=== PATIENT | male | born 1985 | race Two or more races ===

== ENCOUNTER 2020-07-05 04:22 | Day surgery (SDC) | payer OTHER ==
[2020-07-02 14:29] VITALS: BMI 32.8
--- OUTSIDE RECORDS SUMMARY | 2020-07-05 04:34 | XMS ---
:1985 Author Organization [facility] Care Team Providers Name Role Phone Ringstad, Kiah Unavailable Unavailable Ringstad, Kiah Unavailable Unavailable Ringstad, Kiah Unavailable Unavailable Ringstad, Kiah Unavailable Unavailable Ringstad, Kiah Unavailable Unavailable Ringstad, Kiah Unavailable Unavailable Ringstad, Kiah Unavailable Unavailable Ringstad, Kiah Unavailable Unavailable Ringstad, Kiah Unavailable Unavailable Ringstad, Kiah Unavailable Unavailable Ringstad, Kiah Unavailable Unavailable Aszalos, Tamiko Lucy Unavailable Unavailable Aszalos, Lucy Unavailable Unavailable Aszalos, Lucy Unavailable Unavailable Aszalos, Lucy Unavailable Unavailable Aszalos, Lucy Unavailable Unavailable Aszalos, Lucy Unavailable Unavailable Aszalos, Lucy Unavailable Unavailable Aszalos, Lucy Unavailable Unavailable Aszalos, Lucy Unavailable Unavailable STEVE Unavailable Unavailable Bowie Unavailable Unavailable Bowie Unavailable Unavailable Bowie Unavailable Unavailable Bowie Unavailable Unavailable Bowie Unavailable Unavailable Bowie Unavailable Unavailable Bowie Unavailable Unavailable Bowie Unavailable Unavailable Bowie Unavailable Unavailable Bowie Unavailable Unavailable Rodrigo Unavailable [phone] MEJIA NATHANIEL Unavailable Unavailable OTONIEL WARNER Unavailable Unavailable Alice Unavailable [phone] Alice Unavailable [phone] Alice Unavailable [phone] Skinny Unavailable Unavailable Skinny Unavailable Unavailable Skinny Unavailable Unavailable Fraser Unavailable [phone] Fraser Unavailable [phone] [place] Unavailable [phone] [place] Unavailable [phone] Re-disclosure Warning The records that you are about to access may contain information from federally- assisted alcohol or drug abuse programs. If such information is present, then the following federally mandated warning applies: This information has been disclosed to you from records protected by federal confidentiality rules (42 CFR part 2). The federal rules prohibit you from making any further disclosure of this information unless further disclosure is expressly permitted by the written consent of the person to whom it pertains or as otherwise permitted by 42 CFR part 2. A general authorization for the release of medical or other information is NOT sufficient for this purpose. The Federal rules restrict any use of the information to criminally investigate or prosecute any alcohol or drug abuse patient.The records that you are about to access may contain highly sensitive health information, the redisclosure of which is protected by Article 27-F of the [facility] Public Health law. If you continue you may haveaccess to information: Regarding HIV / AIDS; Provided by facilities licensed or operated by the [facility] Office of Mental Health; or Provided by the [facility] Office for People With Developmental Disabilities. If such information is present, then the following [facility] mandated warning applies: This information has been disclosed to you from confidential records which are protected by state law. State law prohibits you from making any further disclosure of this information without the specific written consent of the person to whom it pertains, or as otherwise permitted by law. Any unauthorized further disclosure in violation of state law may result in a fine or skilled nursing sentence or both. A general authorization for the release of medical or other information is NOT sufficient authorization for further disclosure. Allergies and Adverse Reactions Type Description Substance Reaction Status Data Source(s ) Propensity to Propensity to Propensity to NEXTG EN ( adverse reactions adverse reactions adverse reactions [facility] (disorder) (disorder) (disorder) Center) Family History Family Member Family Member Family Member Date of Description Data Source(s) Name Gender Status Status Unknown Male Problem 06/28/2019 JUAN RAMONGEN ( (finding) 12:00:00 AM [facility] al EDT Center) Encounters Encounter Providers Location Date Indications Data Source(s ) Attender: [facility] 06/25/2020 NEXTGE N ([facility] 03:49:00 [facility] PM EDT - Center) 06/25/2020 03:49:00 PM EDT Attender: [facility] 06/09/2020 NEXTGE N ([facility] 09:56:00 [facility] al AM EDT - Center) 06/09/2020 09:56:00 AM EDT Outpatient 04/19/2020 [facility] 11:12:00 Medical Center AM EDT Outpatient 04/19/2020 [facility] 12:00:00 Medical Center AM EDT Outpatient 04/05/2020 [facility] 01:51:00 Medical Center PM EDT Outpatient 04/05/2020 [facility] 12:00:00 Medical Center AM EDT Outpatient 03/22/2020 [facility] 09:24:00 Medical Center AM EDT Outpatient 03/22/2020 [facility] 12:00:00 Medical Center AM EDT Outpatient Attender: Tamiko [place] 03/19/2020 [facility] jana AszalosAdmitter 03:04:00 Medical C enter : Tamiko PM EDT AsronnielosReferrer : Tamiko Trujillo Attender: [facility] 03/19/2020 NEXTGE N ([facility] 03:04:00 [facility] al PM EDT - Center) 03/19/2020 03:04:00 PM EDT Outpatient 03/19/2020 [facility] 11:34:00 Medical Center AM EDT Outpatient 03/19/2020 [facility] 12:00:00 Medical Center AM EDT Attender: [facility] 03/17/2020 NEXTGE N ([facility] 11:00:00 [facility] al AM EDT - Center) 03/17/2020 11:00:00 AM EDT Outpatient 03/08/2020 [facility] 03:33:00 Medical Center PM EDT Outpatient 03/08/2020 [facility] 12:00:00 Medical Center AM EDT Attender: [facility] 03/04/2020 NEXTGE N ([facility] 10:32:00 [facility] Me dical AM EDT - Center) 03/04/2020 10:32:00 AM EDT Attender: [facility] 01/28/2020 NEXTGEN ([facility] int [facility] 01:53:00 [facility] Me dical EDT - Center) 01/28/2020 01:53:00 PM EDT Outpatient Attender: 01/26/2020 [facility] TIMMY FREDERICK 12:33:[address] MIGUELNYAdmitter: PM EDT TIMMY OTONIEL WARNERReferrer: TIMMY RIVERANY PHONE E/M BY PHYS Attender: [facility] 01/26/2020 NEXT GEN ([facility] 11-20 MIN [place] 12:33:00 [facility] Medica l Alice EDT - Center) 01/26/2020 12:33:00 PM EDT Outpatient 01/26/2020 [facility] 10:04:00 Medical Center AM EDT Outpatient 01/26/2020 [facility] 12:00:00 Medical Center AM EDT Outpatient Attender: 01/17/2020 Z03.818 [place] KARAdmitter: 02:35:00 [facility] EDT Care [employer] on Z03.818 Outpatient 01/15/2020 [facility] 04:46:00 PM EDT Medical C enter Outpatient Attender: 01/15/2020 [facility] Kiah 08:39:00 AM EDT Medical C enter MelissatadAdmitter: Kiah Dioxneferrer: Kiah Umaña PHONE E/M BY PHYS [facility] ([facility] 11-20 MIN Jasper Rodrigo [place] 08:39:00 AM EDT - [facility] 01/15/2020 [place]) 08:39:00 AM EDT Outpatient 01/15/2020 [facility] 12:00:00 AM EDT Medical C enter Attender: [facility] 12/22/2019 JUAN RAMONG EN ([facility] 11:54:00 AM EDT - [facility] 12/22/2019 Center) 11:54:00 AM EDT Outpatient 12/17/2019 [facility] 10:30:00 AM EDT Medical C enter Outpatient Attender: Jocelin [place] 12/17/2019 [facility] VelezAdmitter: 09:51:00 AM EDT Medic al Center Jocelin BowieReferrer: Jocelin Bowie OutpatientOFFICE/OU Attender: [facility] 12/17/2019 [facility] ([facility] TPATIENT VISIT, [facility]3] 09:51:00 AM EDT [facility] 12/17/2019 [place]) 09:51:00 AM EDT Outpatient 12/17/2019 [facility] 09:49:00 AM EDT Medical C enter Outpatient 12/17/2019 [facility] 12:00:00 AM EDT Medical C enter Outpatient 12/01/2019 [facility] 03:52:00 PM EST Medical C enter Outpatient 12/01/2019 [facility] 12:00:00 AM EST Medical C enter Outpatient 11/08/2019 [facility] 10:31:00 AM EST Medical C enter Outpatient Attender: NATHANIEL H 11/08/2019 [facility] ephs MEJIA 08:41:00 AM EST Medical C enter MINALAdmitter: NATHANIEL BA MINALReferrer: NATHANIEL BA NATHANIEL OutpatientOFFICE/OU Attender: [facility] 11/08/2019 [facility] (Saint TPATIENT VISIT, [facility] 08:41:00 AM [facility] 11/08/2019 [place]) 08:41:00 AM EST Outpatient 11/08/2019 [facility] 12:00:00 AM EST Medical C enter Attender: [facility] 11/05/2019 NEXT EN ([facility] 10:19:00 AM [facility] 11/05/2019 [place]) 10:19:00 AM EST Attender: [facility] 07/30/2019 NEXTG EN ([facility] [place] 09:28:00 AM EDT Outpatient Attender: NATHANIEL H 07/22/2019 [facility] ephs MEJIA 06:03:00 PM EDT Medical C enter MINALAdmitter: NATHANIEL BA MINALReferrer: NATHANIEL MEJIA NATHANIEL OutpatientOFFICE/OU Attender: [facility] 07/22/2019 [facility] (Saint TPATIENT VISIT, [facility] 06:03:00 PM EDT [facility] 07/22/2019 [place]) 06:03:00 PM EDT Outpatient 07/22/2019 [facility] 11:58:00 AM EDT Medical C enter Outpatient 07/22/2019 [facility] 12:00:00 AM EDT Medical C enter Outpatient 07/12/2019 [facility] 03:31:00 PM EDT Medical C enter Outpatient Attender: NATHANIEL [place] 07/12/2019 [facility] jana BA 09:48:00 AM EDT Medical C enter MINALAdmitter: NATHANIEL CARVALHOALReferrer: NATHANIEL ARMSTRONG OutpatientOFFICE/OU Attender: [facility] 07/12/2019 NEXTGEN ([facility] TPATIENT VISIT, [facility] 09:48:00 AM EDT [facility] 07/12/2019 [place]) 09:48:00 AM EDT Outpatient 07/12/2019 [facility] 12:00:00 AM EDT Medical C enter Outpatient 07/05/2019 [facility] 10:31:00 AM EDT Medical C enter Outpatient 07/05/2019 [facility] 12:00:00 AM EDT Medical C enter Attender: [facility] 07/01/2019 NEXTG EN ([facility] 11:10:00 AM EDT [facility] 07/01/2019 Center) 11:10:00 AM EDT Outpatient 07/01/2019 [facility] 10:56:00 AM EDT Medical C enter Outpatient 07/01/2019 [facility] 12:00:00 AM EDT Medical C enter Outpatient 06/28/2019 [facility] 10:58:00 AM EDT Medical C enter Outpatient H 06/28/2019 [facility] 08:45:00 AM EDT Medical C enter OutpatientOFFICE/OU Attender: [facility]28[facility]2019 [facility] 08:45:00 AM EDT [facility] 06/28/2019 [place]) 08:45:00 AM EDT 06/28/2019 [facility] 08:43:00 AM EDT Medical C enter Outpatient 06/28/2019 [facility] 12:00:00 AM EDT Medical C enter 06/23/2019 [facility] 10:55:00 AM EDT Medical C enter Patient admitted. Medications Medication Brand Start Product Dose Route Administrative Pharmacy [facility] Indications Reaction Description Data Name Date Form Instructions Instructions Source(s) Naproxen naprox ORAL active take 1 NEX TGEN 500 MG Oral en 500 2019 {tabl tablet by ([facility] Tablet mg 12:00: et} oral route 2 Max ephs naproxen tablet 00 AM times every M edical 500 mg EDT day with Center) tablet food Naproxen naprox ORAL complet take 1 NE XTGEN 500 MG Oral en 500 2019 {tbl} ed tablet by ([facility] Tablet mg 12:00: oral route 2 Max ephs naproxen tablet 00 AM times every M edical 500 mg EDT day with Center) tablet food Medication administered onsite Flonase Allergy fluticasone 12/17/2019 NASAL active fluticasone NEXTGEN Relief 50 propionate 12:00:00 AM pr opionate (Saint mcg/actuation 0.05 EDT 0.05 Darrell s nasal MG/ACTUAT MG/ACTUAT Medi michael spray,suspension Metered Dose Metered Dose Center) Nasal [place] Nasal [place] [Flonase] Ketoconazole 20 ketoconazole 11/08/2019 0 TOPICAL active apply tube NEXTGEN MG/ML Topical 2 % topical 12:00:00 AM {t by topical ([facility] Cream cream EST ub route every Michael hs ketoconazole 2 % e} day to t he Medical topical cream affected Ce nter) area(s) Ketoconazole 20 ketoconazole 11/08/2019 TOPICAL complet ed apply by NEXTGEN MG/ML Topical 2 % topical 12:00:00 AM topical ([facility] Cream cream EST route every Michael hs ketoconazole 2 % day to t he Medical topical cream affected Ce nter) area(s) Medication administered onsite Naproxen 500 MG naproxen 11/08/2019 1.00 ORAL completed take 1 tablet NEXTGEN Oral Tablet 500 mg 12:00:00 AM {tbl} by oral route (Saint naproxen 500 mg tablet EST 2 times every [facility] tablet day with food [facility]) Naproxen 500 MG naproxen 07/22/2019 1.00 ORAL completed take 1 tablet NEXTGEN Oral Tablet 500 mg 12:00:00 AM {tbl} by oral route (Saint naproxen 500 mg tablet EDT 2 times every Arnadlo tablet day with food [facility]) Sulfamethoxazole Bactrim 06/28/2019 1.00 ORAL completed Sulfamethoxazo NEXTGEN 800 MG / DS 800 12:00:00 AM {tbl} le 800 MG / (Saint Trimethoprim 160 mg-160 mg EDT Tri methoprim [facility] MG Oral Tablet tablet 160 MG O ral Medical [Bactrim] Bactrim Tablet Center) DS 800 mg-160 mg [Bactrim ] tablet Insurance Providers Payer name Policy type Policy ID Covered Covered alliance party's Policy P martín / Coverage alliance party ID relationship to [employer] ormation type brunson MAE [id number] SP [id number] ESSENTIAL PLAN 3 4 MAE O [id number] 01 [id number] ESSENTIALS-CO MMERCIAL Problems, Conditions, and Diagnoses Code Display Name Description Problem Type Effective Data Sour ce(s) Dates [id number] Backache Backache Problem NEXTGEN ([facility]) Z71.89 Other specified OTHER SPECIFIED Diagnosis 03/19/2020 Kevin Mcintosh counseling COUNSELING 03:04:00 PM Medical Ashleye r EDT Z71.9 Counseling, COUNSELING, Diagnosis 03/19/2020 [facility] moise unspecified UNSPECIFIED 03:04:[address] EDT N28.1 Cyst of kidney, CYST OF KIDNEY, Diagnosis 03/19/2020 Kevin Mcintosh acquired ACQUIRED 03:04:00 PM Medical Cente r EDT M62.830 Muscle spasm of MUSCLE SPASM OF Diagnosis 03/19/2020 Kevin Mcintosh back BACK 03:04:00 PM Medical Cente r EDT Z02.9 Encounter for ENCOUNTER FOR Diagnosis 01/26/2020 [facility] administrative ADMINISTRATIVE 12:33:00 PM Medic vt Center examinations, EXAMINATIONS, EDT unspecified UNSPECIFIED Z03.818 Encounter for ENCNTR FOR OBS FOR Diagnosis 01/17/2020 [place] observation for SUSP EXPSR TO OTH 02:35:00 PM C [employer] suspected exposure BIOLG AGENTS RULED EDT Care to other OUT [facility] biological agents ruled out R05 Cough COUGH Diagnosis 01/15/2020 [facility] 08:39:00 AM Medical Cente r EDT J06.9 Acute upper ACUTE UPPER Diagnosis 12/17/2019 [facility] respiratory RESPIRATORY 09:51:[address] infection, INFECTION, EDT unspecified UNSPECIFIED Z11.3 Encounter for ENCNTR SCREEN FOR Diagnosis 11/08/2019 Kevin Mcintosh screening for INFECTIONS W SEXL 08:41:00 AM Med ical Center infections with a MODE OF TRANSMISS EST predominantly sexual mode of transmission B35.9 Dermatophytosis, DERMATOPHYTOSIS, Diagnosis 11/08/2019 Sa marybeth Mcintosh unspecified UNSPECIFIED 08:41:[address] EST Z68.33 Body mass index BODY MASS INDEX Diagnosis 07/22/2019 Kevin Mcintosh (BMI) 33.0-33.9, (BMI) 33.0-33.9, 06:03:00 PM edical [place] adult ADULT EDT R73.03 Prediabetes PREDIABETES Diagnosis 07/12/2019 [facility] jose maria 09:48:00 AM Medical Cente r EDT R10.9 Unspecified UNSPECIFIED Diagnosis 07/12/2019 [facility] Darrell moise abdominal pain ABDOMINAL PAIN 09:48:00 AM [facility] Center EDT Diagnosis NEXTGEN ([facility]) Diagnosis NEXTGEN ([facility]) Diagnosis NEXTGEN ([facility]) Surgeries/Procedures Procedure Description Date Indications Data Source(s) PHONE E/M BY PHYS 01/26/2020 NEXTGEN (Jose Maria Mcintosh 11-20 MIN 12:00:00 AM EDT - Medical Ce nter) 01/26/2020 12:00:00 AM EDT PHONE E/M BY PHYS 01/15/2020 NEXTGEN (Jose Maria Mcintosh 11-20 MIN 12:00:00 AM EDT - Medical Ce nter) 01/15/2020 12:00:00 AM EDT OFFICE/OUTPATIENT 12/17/2019 NEXTGEN (Jose Maria Mcintosh VISIT, EST 12:00:00 AM EDT - Medical Ce nter) 12/17/2019 12:00:00 AM EDT OFFICE/OUTPATIENT 11/08/2019 NEXTGEN (Jose Maria Mcintosh VISIT, EST 12:00:00 AM EST - Medical Ce nter) 11/08/2019 12:00:00 AM EST OFFICE/OUTPATIENT 07/22/2019 NEXTGEN (Jose Maria Mcintosh VISIT, EST 12:00:00 AM EDT - Medical Ce nter) 07/22/2019 12:00:00 AM EDT OFFICE/OUTPATIENT 07/12/2019 NEXTGEN (Jose Maria Mcintosh VISIT, EST 12:00:00 AM EDT - Medical Ce nter) 07/12/2019 12:00:00 AM EDT OFFICE/OUTPATIENT 06/28/2019 DANIEL (Jose Maria Mcintosh VISIT, NEW 12:00:00 AM EDT - Medical Ce nter) 06/28/2019 12:00:00 AM EDT Results ID Date Data Source [id number] 07/01/2020 06:45:00 PM EDT [facility] Name Value Range Interpretation Description Data Sup porting Code Source(s) Document(s ) SARS [facility] coronavirus 2 RNA This lab was ordered by [facility] and reported by [facility]. ID Date Data Source [id number] 06/08/2020 02:27:00 PM EDT [facility] Name Value Range Interpretation Code Description Data Yolanda rce(s) Supporting Document(s ) SARS-CoV-2 [facility] BY PCR This lab was ordered by ISMAEL ATKINSON MD P [facility] and reported by [employer]. ID Date Data Source [id number] 03/25/2020 10:52:00 AM EDT [facility] 0400 Name Value Range Interpretation Description Data Sup porting Code Source(s) Document(s ) Leukocytes 4.4-11.0 <content [facility] [#/volume] in styleCode="Bold [facility] Blood by ">White Blood Medical Automated count Cell Count Center </content>7.12 KCUMM<content styleCode="Ital ics"> (4.4-11.0 KCUMM)</content > Erythrocytes 4.4-5.9 <content [facility] [#/volume] in styleCode="Bold [facility] Blood by ">Red Blood Medical Automated count Cell Count Center </content>4.73 MCUMM<content styleCode="Ital ics"> (4.4-5.9 MCUMM)</content > Erythrocyte mean 80.0-100 <content [facility] corpuscular .0 styleCode="Bold [facility]do volume [Entitic ">Mean Medical volume] by Corpuscular Center Automated count Volume </content>88.2 FL<content styleCode="Ital ics"> (80.0-100.0 FL)</content> Hematocrit 41.0-53. <content [facility] [Volume 0 styleCode="Bold [facility]do Fraction] of ">Hematocrit Medical Blood by </content>41.7 Center Automated count %<content styleCode="Ital ics"> (41.0-53.0 %)</content> Erythrocyte mean 32.0-37. <content [facility] corpuscular 0 styleCode="Bold [facility] hemoglobin ">Mean Corpus. Medical concentration Hgb Center [Mass/volume] by Concentration Automated count (MCHC) </content>34.3 G/DL<content styleCode="Ital ics"> (32.0-37.0 G/DL)</content> Hemoglobin 13.5-17. <content Saint [Mass/volume] in 5 styleCode="Bold [facility]do Blood ">Hemoglobin Medical </content>14.3 Center G/DL<content styleCode="Ital ics"> (13.5-17.5 G/DL)</content> Erythrocyte mean 26.0-34. <content [facility] corpuscular 0 styleCode="Bold [facility] hemoglobin ">Mean Medical [Entitic mass] Corposcular Center by Automated Hemoglobin count </content>30.2 PG<content styleCode="Ital ics"> (26.0-34.0 PG)</content> Erythrocyte 11.5-14. <content [facility] distribution 5 styleCode="Bold Ar[facility]do width [Ratio] by ">Red Cell Medical Automated count Distribution Center Width </content>12.5 %<content styleCode="Ital ics"> (11.5-14.5 %)</content> Platelets 130-400 <content [facility] [#/volume] in styleCode="Bold [facility] Blood by ">Platelet Medical Automated count Count Center </content>222 KCUMM<content styleCode="Ital ics"> (130-400 KCUMM)</content > Platelet mean 8.0-11.0 <content [facility] volume [Entitic styleCode="Bold Arnaldo volume] in Blood ">Mean Platelet Medical by Automated Volume Center count </content>11.0 FL<content styleCode="Ital ics"> (8.0-11.0 FL)</content> Neutrophils 36-66 <content [facility] [#/volume] in styleCode="Bold [facility] Blood by ">Neutrophil Medical Automated count </content>45.3 Center %<content styleCode="Ital ics"> (36-66 %)</content> UNK 1.6-7.3 <content [facility] styleCode="Bold Ar[facility]do ">Neutrophil Medical Count Center </content>3.22 KCUMM<content styleCode="Ital ics"> (1.6-7.3 KCUMM)</content > Lymphocytes 24.0-44. <content [facility] [#/volume] in 0 styleCode="Bold [facility] Blood by ">Lymphocyte Medical Automated count </content>39.7 Center %<content styleCode="Ital ics"> (24.0-44.0 %)</content> UNK 1.0-4.8 <content [facility] styleCode="Bold Ar[facility]do ">Lymphocyte Medical Count Center </content>2.83 KCUMM<content styleCode="Ital ics"> (1.0-4.8 KCUMM)</content > UNK 0.2-0.9 <content [facility] styleCode="Bold Arnaldo ">Monocyte Medical Count Center </content>0.56 KCUMM<content styleCode="Ital ics"> (0.2-0.9 KCUMM)</content > Monocytes 3.0-10.0 <content [facility] [#/volume] in styleCode="Bold [facility] Blood by ">Monocyte Medical Automated count </content>7.9 Center %<content styleCode="Ital ics"> (3.0-10.0 %)</content> Eosinophils 0-5.0 Above high <content [facility] [#/volume] in normal styleCode="Bold [facility] Blood by ">Eosinophil Medical Automated count </content>6.0 % Center H<content styleCode="Ital ics"> (0-5.0 %)</content> UNK 0.0-0.6 <content Saint styleCode="Bold Arnaldo ">Eosinophil Medical Count Center </content>0.43 KCUMM<content styleCode="Ital ics"> (0.0-0.6 KCUMM)</content > UNK 0.0-0.3 <content Saint styleCode="Bold Arnaldo ">Basophil Medical Count Center </content>0.05 KCUMM<content styleCode="Ital ics"> (0.0-0.3 KCUMM)</content > Basophils 0.0-1.0 <content [facility] [#/volume] in styleCode="Bold Ar[facility]do Blood by ">Basophil Medical Automated count </content>0.7 Center %<content styleCode="Ital ics"> (0.0-1.0 %)</content> UNK 0 <content Saint styleCode="Bold Arnaldo ">Nucleated Red Medical Blood Cell Center </content>0.0 /100<content styleCode="Ital ics"> (0 /100)</content> UNK 0-0.1 <content Saint styleCode="Bold Ar[facility]do ">Immature Medical Granulocyte Center Count </content>0.03 KCUMM<content styleCode="Ital ics"> (0-0.1 KCUMM)</content > UNK < 1 <content Saint styleCode="Bold Ar[facility]do ">Immature Medical Granulocyte Center Ratio </content>0.4 %<content styleCode="Ital ics"> (< 1 %)</content> UNK 0.0 <content Saint styleCode="Bold Arnaldo ">Nucleated Red Medical Blood Cell Center Count </content>0.00 KCUMM<content styleCode="Ital ics"> (0.0 KCUMM)</content > ID Date Data Source GFR(Creatinine).[id number] 03/25/2020 10:52:00 AM EDT [facility] 0-0400 Name Value Range Interpretation Code Description Data Yolanda rce(s) Supporting Document(s ) UNK > 60 <content [facility] styleCode="Bold"> Medical Cent er EGFR </content>136 GFR<content styleCode="Italic s"> (> 60 GFR)</content> ID Date Data Source [id number] 03/25/2020 10:52:00 AM EDT [facility] Name Value Range Interpretation Description Data Sup porting Code Source(s) Document(s ) Sodium 137-145 <content [facility] [Moles/volume] styleCode="Shea Arnaldo in Serum or d">Sodium Medical Plasma </content>141 Center MEQ/L<content styleCode="Sandra lics"> (137-145 MEQ/L)</conten t> Potassium 3.5-5.3 <content [facility] [Moles/volume] styleCode="Shea Arnaldo in Serum or d">Potassium Medical Plasma </content>4.1 Center MEQ/L<content styleCode="Sandra lics"> (3.5-5.3 MEQ/L)</conten t> Chloride 98-107 <content [facility] [Moles/volume] styleCode="Shea Arnaldo in Serum or d">Chloride Medical Plasma </content>107 Center MEQ/L<content styleCode="Sandra lics"> (98-107 MEQ/L)</conten t> UNK 9-20 <content Saint styleCode="Shea Arnaldo d">BUN Medical </content>15 Center MG/DL<content styleCode="Sandra lics"> (9-20 MG/DL)</conten t> Carbon 22-30 <content Saint dioxide, total styleCode="Shea Arnaldo [Moles/volume] d">Carbon Medical in Serum or Dioxide Center Plasma </content>27 MEQ/L<content styleCode="Sandra lics"> (22-30 MEQ/L)</conten t> Glucose 74-106 Above high normal <content Saint [Mass/volume] styleCode="Shea Arnaldo in Serum or d">Glucose Medical Plasma </content>113 Center MG/DL H<content styleCode="Sandra lics"> (74-106 MG/DL)</conten t> Creatinine 0.5-1.3 <content [facility] [Mass/volume] styleCode="Shea Arnaldo in Serum or d">Creatinine Medical Plasma </content>0.7 Center MG/DL<content styleCode="Sandra lics"> (0.5-1.3 MG/DL)</conten t> Calcium 8.4-10.2 <content [facility] [Mass/volume] styleCode="Shea Arnaldo in Serum or d">Calcium Medical Plasma </content>9.8 Center MG/DL<content styleCode="Sandra lics"> (8.4-10.2 MG/DL)</conten t> UNK > 60 <content Saint styleCode="Shea Arnaldo d">EGFR Medical </content>136 Center GFR<content styleCode="Sandra lics"> (> 60 GFR)</content> ID Date Data Source [id number] 02/22/2020 12:00:00 AM EDT [facility] Name Value Range Interpretation Code Description Data Yolanda rce(s) Supporting Document(s ) 2018-nCoV [facility] RNA XXX RIGOBERTO+probe- Imp [facility] and reported by [employer] ID Date Data Source [id number] 01/17/2020 12:00:00 AM EDT [facility] Name Value Range Interpretation Code Description Data Yolanda rce(s) Supporting Document(s ) nCoV [facility] RNA XXX RIGOBERTO+probe- Imp This lab was ordered by [facility] and reported by [employer] ID Date Data Source [id number] 12/17/2019 11:08:00 AM EDT NEXTG EN ([facility] [id number] [place]) Name Value Range Interpretation Code Description Data Supporting Source(s) Document(s ) NEGATIVE NEGATIVE RAPID INFLUENZA NEXTGEN B (NASAL) ([facility]) NEGATIVE NEGATIVE RAPID INFLUENZA NEXTGEN A (NASAL) ([facility]) A negative result does not exclude influ darin viral infection and shouldbe confirmed by viral culture. The clinical performan ce of thisimmunofluorescence assay has not been established in patients 22 years of age and older and may not be consistent with the clinical performanceobtained with yo romana patients.

ID Date Data Source Urinalysis.[id number] 11/08/2019 09:45:00 AM EST [facility] 0 Name Value Range Interpretation Description Data Sup porting Code Source(s) Document(s ) UNK CLEAR <content Saint styleCode="Shea Arnaldo d">Urine Medical Clarity Center </content>ZOE R <content styleCode="Sandra lics"> (CLEAR )</content> Glucose NEGATIVE <content [facility] [Mass/volume] styleCode="Shea Mcintosh in Urine by d">Urine Medical Test strip Glucose Center </content>NEGA TIVE MG/DL<content styleCode="Sandra lics"> (NEGATIVE MG/DL)</conten t> Color of Urine YELLOW <content Saint styleCode="Shea Ramírezs d">Color, Medical Urine Center </content>YELL OW <content styleCode="Sandra lics"> (YELLOW )</content> Specific 1.015-1.02 <content Saint gravity of 5 styleCode="Shea Mcintosh Urine by Test d">Urine Medical strip Specific Center [place] </content>1.01 5 <content styleCode="Sandra lics"> (1.015-1.025 )</content> Hemoglobin NEGATIVE <content Saint [Presence] in styleCode="Shea Mcintosh Urine by Test d">Urine Blood Medical strip </content>NEGA Center TIVE <content styleCode="Sandra lics"> (NEGATIVE )</content> Ketones NEGATIVE <content [facility] [Mass/volume] styleCode="Shea Mcintosh in Urine by d">Urine Medical Test strip Ketone Center </content>NEGA TIVE MG/DL<content styleCode="Sandra lics"> (NEGATIVE MG/DL)</conten t> UNK NEGATIVE <content Saint styleCode="Shea Ramírezs d">Urine Medical Bilirubin Center </content>NEGA TIVE <content styleCode="Sandra lics"> (NEGATIVE )</content> Nitrite NEGATIVE <content Saint [Presence] in styleCode="Shea Mcintosh Urine by Test d">Urine Medical strip Nitrite Center </content>NEGA TIVE <content styleCode="Sandra lics"> (NEGATIVE )</content> Protein NEGATIVE <content [facility] [Mass/volume] styleCode="Shea Mcintosh in Urine by d">Urine Medical Test strip Protein Center </content>NEGA TIVE MG/DL<content styleCode="Sandra lics"> (NEGATIVE MG/DL)</conten t> Urobilinogen 0.2-1.0 <content [facility] [Units/volume] styleCode="Shea Arnaldo in Urine by d">Urine Medical Test strip Urobilinogen Center </content>0.2 MG/DL<content styleCode="Sandra lics"> (0.2-1.0 MG/DL)</conten t> pH of Urine by 4.5-8.0 Above high <content Saint Test strip normal styleCode="Shea Arnaldo d">Urine pH Medical </content>8.5 Center H<content styleCode="Sandra lics"> (4.5-8.0 )</content> Leukocyte NEGATIVE <content Saint esterase styleCode="Shea Arnaldo [Presence] in d">Urine Medical Urine by Test Leukocyte Center strip </content>NEGA TIVE <content styleCode="Sandra lics"> (NEGATIVE )</content> ID Date Data Source Microbiology.[id number] 11/08/2019 09:45:00 AM EST [facility] 500 Name Value Range Interpretation Code Description Data Yolanda rce(s) Supporting Document(s ) UNK <item><content [facility] styleCode="Bold"> Medical Cent er Culture Report </content>
<t able><tbody><tr>< td>Specimen Number:</td><td>[id number]</td></tr ><tr><td>Sample Collection Date/Time: </td><td>11/08/2019 9:45 AM</td></tr><tr>< td>Specimen Source:</td><td>U RINE BLADDER</td></tr> <tr><td>Urine Culture:</td><td> Collection Plate Date: 11/08/2019 16:23 </td></tr><tr><td >Culture Status:</td><td>F inal </td></tr><tr><td >Culture Report:</td><td>N O GROWTH </td></tr></tbody ></table></item> UNK <item><content [facility] styleCode="Bold"> Medical Cent er Culture Status </content>
<t able><tbody><tr>< td>Specimen Number:</td><td>[id number]</td></tr ><tr><td>Sample Collection Date/Time: </td><td>11/08/2019 9:45 AM</td></tr><tr>< td>Specimen Source:</td><td>U RINE BLADDER</td></tr> <tr><td>Culture Report:</td><td>N O GROWTH </td></tr><tr><td >Urine Culture:</td><td> Collection Plate Date: 11/08/2019 16:23 </td></tr><tr><td >Culture Status:</td><td>F inal </td></tr></tbody ></table></item> ID Date Data Source CHMROUTINECCDA.[id number] 11/08/2019 09:45:00 AM EST [facility] -0500 Name Value Range Interpretation Description Data Sup porting Code Source(s) Document(s ) Prostate < 4.0 <content [facility] specific Ag styleCode="Bold Medical [Mass/volume ">Prostate Center ] in Serum Specific or Plasma Antigen </content>0.690 NG/ML<content styleCode="Ital ics"> (< 4.0 NG/ML)</content > ID Date Data Source [id number] 11/08/2019 09:45:00 AM EST NEXTG EN ([facility] [id number] [place]) Name Value Range Interpretation Code Description Data Supporting Source(s) Document(s ) [facility]INE [facility] BL[facility] ([facility]) [id number] SPECIMEN NO [facility]) 11/08/2019 PLATE DT NEXTGEN 16:23 ([facility]) 11/08/2019 COLLECTION DT NEXTGEN 09:45 ([facility]) NO GROWTH CULTURE REPORT NEXTGEN ([facility]) ID Date Data Source [id number] 11/08/2019 09:45:00 AM EST NEXTG EN ([facility] [id number] [place]) Name Value Range Interpretation Description Data Sup porting Code Source(s) Document(s ) [id number] SPECIMEN NO NEXTGEN ([facility]) URINE BLADDER CULTURE SOURCE [facility] ([facility]) Preliminary [facility]) 11/08/2019 PLATE DT NEXTGEN 16:23 ([facility]) 11/08/2019 COLLECTION DT NEXTGEN 09:45 ([facility]) Culture in [facility] progress ([facility]) ID Date Data Source [id number] 11/08/2019 09:45:00 AM EST NEXTG EN ([facility] [id number] [place]) Name Value Range Interpretation Code Description Data Yolanda rce(s) Supporting Document(s ) 0.690 NG/ML < 4.0 PSA [facility]) Method: Immunometric luminescent reactio n on the [employer] Vitros 5600.PSA in a given patient sample deter mined with tests from differentmanufacturers can vary due to differences in test meth ods and reagentspecificity and cannot be used interchangeably.PSA levels should not be interpreted as absolute evidence of the presenceor absence of malignant disease. Reference Range: < 4.0 ng/mL

ID Date Data Source [id number] 11/08/2019 09:45:00 AM EST NEXTG EN ([facility] [id number] [place]) Name Value Range Interpretation Description Data Sup porting Code Source(s) Document(s ) YELLOW YELLOW U COLOR [facility] ([facility]) CLEAR CLEAR U CLARITY [facility] ([facility]) NEGATIVE NEGATIVE U KETONE [facility] ([facility]) NEGATIVE NEGATIVE U GLUCOSE [facility] ([facility]) NEGATIVE NEGATIVE U BILIRUBIN NEXTGEN ([facility]) NEGATIVE NEGATIVE U BLOOD NEXTGEN ([facility]) 1.015 1.015-1.025 U SP.GRAVITY NEXTGEN ([facility]) 8.5 4.5-8.0 Above high normal U PH NEXTGEN ([facility]) NEGATIVE NEGATIVE U PROTEIN NEXTGEN ([facility]) NEGATIVE NEGATIVE U NITRITE NEXTGEN ([facility]) 0.2 MG/DL 0.2-1.0 U UROBILINOGEN NEXTGEN ([facility]) NEGATIVE NEGATIVE U. LEUKOCYTE NEXTGEN ([facility]) ID Date Data Source [id number] 11/08/2019 09:45:00 AM EST NEXTG EN ([facility] [id number] [place]) Name Value Range Interpretation Description Data Sup porting Code Source(s) Document(s ) Not Detected Not CHLAMYDIA NEXTGEN Detected URINE ([facility]) This test was performed using the APTIMA COMBO2(R) Assay(GEN-PROBE(R)).For additional information, please refer [email or web address](This link is being provided for informational /educationalpurposes only)

ID Date Data Source [id number] 11/08/2019 09:45:00 AM EST NEXTG EN ([facility] [id number] [place]) Name Value Range Interpretation Description Data Sup porting Code Source(s) Document(s ) Not Detected Not N.GONORRHOEAE NEXTGEN Detected RNA, TMA ([facility]) This test was performed using the APTIMA COMBO2(R) Assay(GEN-PROBE(R)).For additional information, please refer [email or web address](This link is being provided for informational /educationalpurposes only)

ID Date Data Source [id number] 11/08/2019 09:02:10 AM EST NEXTG EN ([facility] [id number] [place]) Name Value Range Interpretation Description Data Sup porting Code Source(s) Document(s ) Neg Bilirubin NEXTGEN ([facility]) Neg Blood NEXTGEN ([facility]) Clear Clarity NEXTGEN ([facility]) Neg Ketones NEXTGEN ([facility]) Urinalysis Yellow Color NEXTGEN dipstick panel ([facility] Automated test Medical strip [place]) 1.010 [place] NEXTGEN ([facility]) Neg Nitrite NEXTGEN ([facility]) Neg Leukocytes NEXTGEN ([facility]) Neg Protein NEXTGEN ([facility]) 8.5 pH NEXTGEN ([facility]) Neg [facility]ucose [facility] 0.2 Urobilinogen [facility] ([facility]) ID Date Data Source Stools.[id number] 07/14/2019 10:32:[address] [facility] Name Value Range Interpretation Description Data Sup porting Code Source(s) Document(s ) UNK Not Detected <content [facility] styleCode="Bold Medical ">H. Pylori Ag, Center Ql, Stool </content>Not Detected <content styleCode="Ital ics"> (Not Detected )</content> ID Date Data Source Urinalysis.[id number] 06/28/2019 10:02:00 AM EDT [facility] 0 Name Value Range Interpretation Description Data Sup porting Code Source(s) Document(s ) Glucose NEGATIVE <content Saint [Mass/volume] styleCode="Shea Mcintosh in Urine by d">Urine Medical Test strip Glucose Center </content>NEGA TIVE MG/DL<content styleCode="Sandra lics"> (NEGATIVE MG/DL)</conten t> UNK NEGATIVE <content Saint styleCode="Shea Arnaldo d">Urine Medical Bilirubin Center </content>NEGA TIVE <content styleCode="Sandra lics"> (NEGATIVE )</content> UNK CLEAR <content Saint styleCode="Shea Arnaldo d">Urine Medical Clarity Center </content>ZOE R <content styleCode="Sandra lics"> (CLEAR )</content> Color of Urine YELLOW <content Saint styleCode="Shea Arnaldo d">Color, Medical Urine Center </content>YELL OW <content styleCode="Sandra lics"> (YELLOW )</content> Specific 1.015-1.02 Below low normal <content Saint gravity of 5 styleCode="Shea Arnaldo Urine by Test d">Urine Medical strip Specific Center [place] </content>1.01 0 L<content styleCode="Sandra lics"> (1.015-1.025 )</content> Ketones NEGATIVE <content [facility] [Mass/volume] styleCode="Shea Arnaldo in Urine by d">Urine Medical Test strip Ketone Center </content>NEGA TIVE MG/DL<content styleCode="Sandra lics"> (NEGATIVE MG/DL)</conten t> pH of Urine by 4.5-8.0 <content Saint Test strip styleCode="Shea Arnaldo d">Urine pH Medical </content>5.5 Center <content styleCode="Sandra lics"> (4.5-8.0 )</content> Hemoglobin NEGATIVE <content Saint [Presence] in styleCode="Shea Ramírezs Urine by Test d">Urine Blood Medical strip </content>SMAL Center L <content styleCode="Sandra lics"> (NEGATIVE )</content> Leukocyte NEGATIVE <content [facility] esterase styleCode="Shea Ramírezs [Presence] in d">Urine Medical Urine by Test Leukocyte Center strip </content>NEGA TIVE <content styleCode="Sandra lics"> (NEGATIVE )</content> Nitrite NEGATIVE <content Saint [Presence] in styleCode="Shea Arnaldo Urine by Test d">Urine Medical strip Nitrite Center </content>NEGA TIVE <content styleCode="Sandra lics"> (NEGATIVE )</content> Protein NEGATIVE <content Saint [Mass/volume] styleCode="Shea Arnaldo in Urine by d">Urine Medical Test strip Protein Center </content>NEGA TIVE MG/DL<content styleCode="Sandra lics"> (NEGATIVE MG/DL)</conten t> Urobilinogen 0.2-1.0 <content Saint [Units/volume] styleCode="Shea Arnaldo in Urine by d">Urine Medical Test strip Urobilinogen Center </content>0.2 MG/DL<content styleCode="Sandra lics"> (0.2-1.0 MG/DL)</conten t> UNK 0-3 <content Saint styleCode="Shea Ramírezs d">Urine Red Medical Blood Cell Center </content>0-3 HPF<content styleCode="Sandra lics"> (0-3 HPF)</content> UNK <content Saint styleCode="Shea Ramírezs d">Epithelial Medical Cell Center </content>2-5 LPF (Reference Range: not available)<br/ > ID Date Data Source Microbiology.[id number] 06/28/2019 10:02:00 AM EDT [facility] 400 Name Value Range Interpretation Code Description Data Yolanda rce(s) Supporting Document(s ) UNK <item><content [facility] styleCode="Bold"> Medical [facility] er Culture Status </content>
<t able><tbody><tr>< td>Specimen Number:</td><td>[id number]</td></tr ><tr><td>Sample Collection Date/Time: </td><td> 9 10:02 AM</td></tr><tr>< td>Specimen Source:</td><td>U RINE BLADDER</td></tr> <tr><td>Culture Status:</td><td>F inal </td></tr><tr><td >Culture Report:</td><td>N O GROWTH </td></tr><tr><td >Urine Culture:</td><td> Collection Plate Date: 06/28/2019 16:48 </td></tr></tbody ></table></item> UNK <item><content [facility] styleCode="Bold"> Medical Cent er Culture Report </content>
<t able><tbody><tr>< td>Specimen Number:</td><td>[id number]</td></tr ><tr><td>Sample Collection Date/Time: </td><td> 10:02 AM</td></tr><tr>< td>Specimen Source:</td><td>U RINE BLADDER</td></tr> <tr><td>Culture Report:</td><td>N O GROWTH </td></tr><tr><td >Urine Culture:</td><td> Collection Plate Date: 06/28/2019 16:48 </td></tr><tr><td >Culture Status:</td><td>F inal </td></tr></tbody ></table></item> ID Date Data Source Liver 06/28/2019 10:02:[address] [facility] Profile.[id number] Name Value Range Interpretation Description Data Sup porting Code Source(s) Document(s ) Aspartate 17-59 <content Saint aminotransferase styleCode="Bold"> Michael hs [Enzymatic Aspartate Medical activity/volume] Aminotransferase Center in Serum or Plasma (AST) </content>33 IU/L<content styleCode="Italic s"> (17-59 IU/L)</content> Bilirubin.total 0.2-1.3 <content Saint [Mass/volume] in styleCode="Bold"> Michael hs Serum or Plasma Bilirubin Total Medical </content>0.3 Center MG/DL<content styleCode="Italic s"> (0.2-1.3 MG/DL)</content> Alanine 7-50 <content [facility] aminotransferase styleCode="Bold"> Michael hs [Enzymatic Alanine Medical activity/volume] Aminotransferase Center in Serum or Plasma (ALT) </content>30 IU/L<content styleCode="Italic s"> (7-50 IU/L)</content> Albumin 3.5-5.0 <content [facility] [Mass/volume] in styleCode="Bold"> Michael hs Serum or Plasma Albumin Medical </content>4.3 Center G/DL<content styleCode="Italic s"> (3.5-5.0 G/DL)</content> Alkaline 38-126 <content Saint phosphatase styleCode="Bold"> Arnaldo [Enzymatic Alkaline Medical activity/volume] Phosphatase (ALP) Cente r in Serum or Plasma </content>91 IU/L<content styleCode="Italic s"> (38-126 IU/L)</content> ID Date Data Source LIPID.[id number] 06/28/2019 10:02:00 AM EDT [facility] Name Value Range Interpretation Description Data Sup porting Code Source(s) Document(s ) UNK > 60 Below low normal <content Saint styleCode="Shea Arnaldo d">HDL- Medical Cholesterol Center </content>39 MG/DL L<content styleCode="Sandra lics"> (> 60 MG/DL)</conten t> UNK < 100 Above high normal <content Saint styleCode="Shea Arnaldo d">LDL-Cholest [facility] misael Center </content>140 MG/DL H<content styleCode="Sandra lics"> (< 100 MG/DL)</conten t> Triglyceride < 150 Above high normal <content Saint [Mass/volume] in styleCode="Shea Arnaldo Serum or Plasma d">Triglycerid Medical Center </content>153 MG/DL H<content styleCode="Sandra lics"> (< 150 MG/DL)</conten t> Cholesterol -<200 Above high normal <content Saint [Mass/volume] in styleCode="Shea Arnaldo Serum or Plasma d">Cholesterol Medical </content>210 Center MG/DL H<content styleCode="Sandra lics"> (-<200 MG/DL)</conten t> ID Date Data Source HematologyRou.[id number] 06/28/2019 10:02:00 AM EDT [facility] 0400 Name Value Range Interpretation Description Data Sup porting Code Source(s) Document(s ) Leukocytes 4.4-11.0 <content Saint [#/volume] in styleCode="Bold Arnaldo Blood by ">White Blood Medical Automated count Cell Count Center </content>7.74 KCUMM<content styleCode="Ital ics"> (4.4-11.0 KCUMM)</content > Hemoglobin 13.5-17. <content Saint [Mass/volume] in 5 styleCode="Bold Arnaldo Blood ">Hemoglobin Medical </content>14.6 Center G/DL<content styleCode="Ital ics"> (13.5-17.5 G/DL)</content> Erythrocytes 4.4-5.9 <content Saint [#/volume] in styleCode="Bold Arnaldo Blood by ">Red Blood Medical Automated count Cell Count Center </content>4.95 MCUMM<content styleCode="Ital ics"> (4.4-5.9 MCUMM)</content > Hematocrit 41.0-53. <content Saint [Volume 0 styleCode="Bold Arnaldo Fraction] of ">Hematocrit Medical Blood by </content>43.0 Center Automated count %<content styleCode="Ital ics"> (41.0-53.0 %)</content> Erythrocyte mean 32.0-37. <content [facility] corpuscular 0 styleCode="Bold Arnaldo hemoglobin ">Mean Corpus. Medical concentration Hgb Center [Mass/volume] by Concentration Automated count (MCHC) </content>34.0 G/DL<content styleCode="Ital ics"> (32.0-37.0 G/DL)</content> Erythrocyte 11.5-14. <content Saint distribution 5 styleCode="Bold Arnaldo width [Ratio] by ">Red Cell Medical Automated count Distribution Center Width </content>12.6 %<content styleCode="Ital ics"> (11.5-14.5 %)</content> Erythrocyte mean 80.0-100 <content [facility] corpuscular .0 styleCode="Bold Arnaldo volume [Entitic ">Mean Medical volume] by Corpuscular Center Automated count Volume </content>86.9 FL<content styleCode="Ital ics"> (80.0-100.0 FL)</content> Erythrocyte mean 26.0-34. <content Saint corpuscular 0 styleCode="Bold Arnaldo hemoglobin ">Mean Medical [Entitic mass] Corposcular Center by Automated Hemoglobin count </content>29.5 PG<content styleCode="Ital ics"> (26.0-34.0 PG)</content> UNK 0 <content Saint styleCode="Bold Arnaldo ">Nucleated Red Medical Blood Cell Center </content>0.0 /100<content styleCode="Ital ics"> (0 /100)</content> Platelets 130-400 <content Saint [#/volume] in styleCode="Bold Arnaldo Blood by ">Platelet Medical Automated count Count Center </content>267 KCUMM<content styleCode="Ital ics"> (130-400 KCUMM)</content > UNK 0.0 <content Saint styleCode="Bold Arnlado ">Nucleated Red Medical Blood Cell Center Count </content>0.00 KCUMM<content styleCode="Ital ics"> (0.0 KCUMM)</content > Platelet mean 8.0-11.0 Above high <content Saint volume [Entitic normal styleCode="Bold Arnaldo volume] in Blood ">Mean Platelet Medical by Automated Volume Center count </content>11.5 FL H<content styleCode="Ital ics"> (8.0-11.0 FL)</content> ID Date Data Source GFR(Creatinine).[id number] 06/28/2019 10:02:00 AM EDT [facility] 0-0400 Name Value Range Interpretation Code Description Data Yolanda rce(s) Supporting Document(s ) UNK > 60 <content [facility] styleCode="Bold"> Medical Cent er EGFR </content>117 GFR<content styleCode="Italic s"> (> 60 GFR)</content> ID Date Data Source CHMROUTINECCDA.[id number] 06/28/2019 10:02:00 AM EDT [facility] -0400 Name Value Range Interpretation Description Data Sup porting Code Source(s) Document(s ) UNK 4.2-5.8 Above high normal <content [place] s styleCode="Bold Medical ">Hemoglobin Center A1C </content>6.0 % H<content styleCode="Ital ics"> (4.2-5.8 %)</content> UNK 2.3-3.5 <content [facility] styleCode="Bold Medical ">Globulin Center </content>3.2 G/DL<content styleCode="Ital ics"> (2.3-3.5 G/DL)</content> UNK >= 1.0 <content [facility] styleCode="Bold Medical ">AG Ratio Center </content>1.3 <content styleCode="Ital ics"> (>= 1.0 )</content> Protein 6.3-8.2 <content [facility] [Mass/volum styleCode="Bold Medical e] in Serum ">Total Protein Center or Plasma </content>7.5 G/DL<content styleCode="Ital ics"> (6.3-8.2 G/DL)</content> Lipase 23-300 <content [facility] [Enzymatic styleCode="Bold Medical activity/vo ">Lipase Center lume] in </content>56 Serum or IU/L<content Plasma styleCode="Ital ics"> (23-300 IU/L)</content> ID Date Data Source [facility].[id number] 06/28/2019 10:02:00 AM EDT [facility] Name Value Range Interpretation Description Data Sup porting Code Source(s) Document(s ) Sodium 137-145 <content Saint [Moles/volume] in styleCode="Bold"> [facility] Serum or Plasma Sodium Medical </content>142 Center MEQ/L<content styleCode="Italic s"> (137-145 MEQ/L)</content> Chloride 98-107 <content Saint [Moles/volume] in styleCode="Bold"> [facility] Serum or Plasma Chloride Medical </content>104 Center MEQ/L<content styleCode="Italic s"> (98-107 MEQ/L)</content> Potassium 3.5-5.3 <content Saint [Moles/volume] in styleCode="Bold"> [facility] Serum or Plasma Potassium Medical </content>5.2 Center MEQ/L<content styleCode="Italic s"> (3.5-5.3 MEQ/L)</content> Carbon dioxide, 22-30 <content Saint total styleCode="Bold"> Arnaldo [Moles/volume] in Carbon Dioxide Medical Serum or Plasma </content>27 Center MEQ/L<content styleCode="Italic s"> (22-30 MEQ/L)</content> UNK 9-20 <content Saint styleCode="Bold"> Arnaldo BUN </content>17 Medical MG/DL<content Center styleCode="Italic s"> (9-20 MG/DL)</content> Aspartate 17-59 <content Saint aminotransferase styleCode="Bold"> Michael hs [Enzymatic Aspartate Medical activity/volume] Aminotransferase Center in Serum or Plasma (AST) </content>33 IU/L<content styleCode="Italic s"> (17-59 IU/L)</content> Calcium 8.4-10. Above high <content Saint [Mass/volume] in 2 normal styleCode="Bold"> Michael hs Serum or Plasma Calcium Medical </content>10.3 Center MG/DL H<content styleCode="Italic s"> (8.4-10.2 MG/DL)</content> UNK > 60 <content Saint styleCode="Bold"> Arnaldo EGFR Medical </content>117 Center GFR<content styleCode="Italic s"> (> 60 GFR)</content> Creatinine 0.5-1.3 <content Saint [Mass/volume] in styleCode="Bold"> Michael hs Serum or Plasma Creatinine Medical </content>0.8 Center MG/DL<content styleCode="Italic s"> (0.5-1.3 MG/DL)</content> Glucose 74-106 <content Saint [Mass/volume] in styleCode="Bold"> Michael hs Serum or Plasma Glucose Medical </content>99 Center MG/DL<content styleCode="Italic s"> (74-106 MG/DL)</content> Alkaline 38-126 <content Saint phosphatase styleCode="Bold"> Arnaldo [Enzymatic Alkaline Medical activity/volume] Phosphatase (ALP) Cente r in Serum or Plasma </content>91 IU/L<content styleCode="Italic s"> (38-126 IU/L)</content> Bilirubin.total 0.2-1.3 <content Saint [Mass/volume] in styleCode="Bold"> Michael hs Serum or Plasma Bilirubin Total Medical </content>0.3 Center MG/DL<content styleCode="Italic s"> (0.2-1.3 MG/DL)</content> Albumin 3.5-5.0 <content Saint [Mass/volume] in styleCode="Bold"> Michael hs Serum or Plasma Albumin Medical </content>4.3 Center G/DL<content styleCode="Italic s"> (3.5-5.0 G/DL)</content> Alanine 7-50 <content Saint aminotransferase styleCode="Bold"> Michael hs [Enzymatic Alanine Medical activity/volume] Aminotransferase Center in Serum or Plasma (ALT) </content>30 IU/L<content styleCode="Italic s"> (7-50 IU/L)</content> ID Date Data Source [id number] 06/28/2019 10:02:00 AM EDT NEXTG EN ([facility] [id number] [place]) Name Value Range Interpretation Code Description Data Yolanda rce(s) Supporting Document(s ) 6.0 % 4.2-5.8 Above high normal HB A[facility]C [facility]) For the purpose of screening for the pre sence of diabetes:< 5.8 % Consistent with the absence of diabetes5 .8 - 6.4 % Consistent with increased risk for diabetes(prediabetes)> or = 6.5 % Consistent with diabetesCurrently, no consensus exists for use of hemoglobin A 1cfor diagnosis of diabetes in children.According to [place] Diabetes Association (ADA) guidelines.Hemoglobin A1c <7.0% represents optimal control in non- diabetic patients. Different metrics may apply tospecific patient populations . Standards of medical Care inDiabetes (ADA).

ID Date Data Source [id number] 06/28/2019 10:02:00 AM EDT NEXTG EN ([facility] [id number] [place]) Name Value Range Interpretation Code Description Data Yolanda rce(s) Supporting Document(s ) 153 MG/DL < 150 Above high normal TRIGLYCERIDES NEXTGEN ([facility]) 39 MG/DL > 60 Below low normal HDL- CHOL NEXTGEN (Kevin t [facility]) 140 MG/DL < 100 Above high normal LDL- CALC NEXTGEN (Jose nt [facility]) 210 MG/DL <200 Above high normal [facility]LE[facility]OL [facility] ID Date Data Source [id number] 06/28/2019 10:02:00 AM EDT NEXTG EN ([facility] [id number] [place]) Name Value Range Interpretation Code Description Data Supporting Source(s) Document(s ) 142 MEQ/L 137-145 SODIUM [facility] ([facility]) 5.2 MEQ/L 3.5-5.3 POTASSIUM [facility] ([facility]) 27 MEQ/L 22-30 CARBON DIOXIDE [facility] ([facility]) 7.5 G/DL 6.3-8.2 TOTAL PROTEIN [facility] ([facility]) 104 MEQ/L 98-107 CHLORIDE [facility]) 33 IU/L 17-59 AST (GOT) [facility] ([facility]) 4.3 G/DL 3.5-5.0 ALBUMIN [facility] ([facility]) 1.3 >= 1.0 AG RATIO [facility] ([facility]) 3.2 G/DL 2.3-3.5 GLOBULIN [facility] ([facility]) 117 GFR > 60 eGFR [facility] ([facility]) Estimated GFR is calculated using the [place] dification of Diet in RenalDisease (MDRD) Study equation, and normalized to 1.73m2 body surfce area.The MDRD study equation should only be used in individuals age 18 orolder. It has not been validated f or the following: women,patients with serious comorbid conditions, or on certain medications, orpersons with extremes of body size, muscle mass, or nutritional status. 91 IU/L 38-126 ALP [facility] ([facility]) 30 IU/L 7-50 ALT NEXTGEN ([facility]) 10.3 MG/DL 8.4-10.2 Above high normal [facility]UM [facility] 17 MG/DL 9-20 BUN [facility]) 0.8 MG/DL 0.5-1.3 CRE[facility]ININE [facility] ([facility]) 0.3 MG/DL 0.2-1.3 BILI, TOTAL [facility]EXT[facility] ([facility]) 99 MG/DL 74-106 GLUCOSE [facility] ([facility]) ID Date Data Source [id number] 06/28/2019 10:02:00 AM EDT NEXTG EN ([facility] [id number] [place]) Name Value Range Interpretation Code Description Data Yolanda rce(s) Supporting Document(s ) 56 IU/L 23-300 LIPASE [facility] ([facility]) ID Date Data Source [id number] 06/28/2019 10:02:00 AM EDT NEXTG EN ([facility] [id number] [place]) Name Value Range Interpretation Code Description Data Yolanda rce(s) Supporting Document(s ) 39 MG/DL > 60 Below low normal HDL- CHOL [facility]) 153 MG/DL < 150 Above high normal TRIGLYCERIDES [facility] ([facility]) ID Date Data Source [id number] 06/28/2019 10:02:00 AM EDT NEXTG EN ([facility] [id number] [place]) Name Value Range Interpretation Description Data Sup porting Code Source(s) Document(s ) 27 MEQ/L 22-30 CARBON DIOXIDE [facility] ([facility]) 104 MEQ/L 98-107 CHLORIDE [facility]) 142 MEQ/L 137-145 SODIUM [facility]) 33 IU/L 17-59 AST (GOT) [facility] ([facility]) 4.3 G/DL 3.5-5.0 ALBUMIN [facility] ([facility]) 7.5 G/DL 6.3-8.2 TOTAL PROTEIN NEXT[facility] ([facility]) 91 IU/L 38-126 ALP [facility] ([facility]) 30 IU/L 7-50 ALT [facility] ([facility]) 0.8 MG/DL 0.5-1.3 CREATININE [facility] ([facility]) 17 MG/DL 9-20 BUN [facility] ([facility]) 10.3 MG/DL 8.4-10.2 Above high normal CALCIUM [facility] ([facility]) 0.3 MG/DL 0.2-1.3 BILI, TOTAL [facility] ([facility]) 99 MG/DL 74-106 GLUCOSE [facility] ([facility]) ID Date Data Source [id number] 06/28/2019 10:02:00 AM EDT NEXTG EN ([facility] [id number] [place]) Name Value Range Interpretation Code Description Data Yolanda rce(s) Supporting Document(s ) 7.74 KCUMM 4.4-11.0 WBC [facility] ([facility]) 4.95 MCUMM 4.4-5.9 RBC [facility] ([facility]) 43.0 % 41.0-53.0 HCT [facility] ([facility]) 86.9 FL 80.0-100.0 MCV [facility]) 14.6 G/DL 13.5-17.5 HGB [facility] ([facility]) 34.0 G/DL 32.0-37.0 MCHC NEXTGEN ([facility]) 29.5 PG 26.0-34.0 [facility] 12.6 % 11.5-14.5 RDW [facility] ([facility]) 267 KCUMM 130-400 PLT [facility] ([facility]) 11.5 FL 8.0-11.0 Above high normal MPV NEXTGEN ([facility]) 0.0 /100 0 NRBC% [facility] ([facility]) New parameters included in the report o f automated CBCNRBC(%/#) Is a direct count of Nucleated Red Blood cell, and will bereported with every CBC count. WBC will automatically be corrected withthe presence of NRBC. 0.00 KCUMM 0.0 NRBC ABS# NEXTGEN ([facility]) ID Date Data Source [id number] 06/28/2019 10:02:00 AM EDT NEXTG EN ([facility] [id number] [place]) Name Value Range Interpretation Code Description Data Supporting Source(s) Document(s ) Final CULTURE STATUS [facility] ([facility]) [id number] SPECIMEN NO [facility] ([facility]) URINE [facility] SOURCE [facility]) 06/28/2019 COLLECTION DT NEXTGEN 10:02 ([facility]) 06/28/2019 PLATE DT [facility] 16:48 ([facility]) NO GROWTH CULTURE REPORT [facility] ([facility]) ID Date Data Source [id number] 06/28/2019 10:02:00 AM EDT NEXTG EN ([facility] [id number] [place]) Name Value Range Interpretation Description Data Sup porting Code Source(s) Document(s ) [id number] SPECIMEN NO [facility] ([facility]) URINE BLADDER CULTURE SOURCE [facility] ([facility]) Preliminary CULTURE STATUS [facility] ([facility]) Culture in [facility]ULTURE REPORT [facility] progress ([facility]) 06/28/2019 PLATE DT NEXTGEN 16:48 ([facility]) 06/28/2019 COLLECTION DT [facility] 10:02 ([facility]) ID Date Data Source [id number] 06/28/2019 10:02:00 AM EDT NEXTG EN ([facility] [id number] [place]) Name Value Range Interpretation Description Data Sup porting Code Source(s) Document(s ) YELLOW YELLOW U COLOR [facility]) CLEAR CLEAR U CLARITY [facility] ([facility]) NEGATIVE NEGATIVE U GLUCOSE [facility] ([facility]) NEGATIVE NEGATIVE U KETONE [facility] ([facility]) NEGATIVE NEGATIVE U BILIRUBIN [facility] ([facility]) 1.010 1.015-1.025 Below low normal U SP.GRAVITY NEXTGEN ([facility]) SMALL NEGATIVE U BLOOD [facility]EXT[facility] ([facility]) NEGATIVE NEGATIVE U PROTEIN NEXT[facility] ([facility]) 5.5 4.5-8.0 U PH [facility] ([facility]) NEGATIVE NEGATIVE U NITRITE [facility]EXT[facility] ([facility]) 0.2 MG/DL 0.2-1.0 U UROBILINOGEN [facility]EXT[facility] ([facility]) 0-3 0-3 U RBC [facility] ([facility]) NEGATIVE NEGATIVE U. LEUKOCYTE NEXT[facility] ([facility]) 2-5 U EPITH [facility]GEN ([facility]) ID Date Data Source [id number] 06/28/2019 09:32:57 AM EDT NEXTG EN ([id number] [place]) Name Value Range Interpretation Description Data Sup porting Code Source(s) Document(s ) clear Clarity NEXTGEN ([facility]) mod Blood [facility] ([facility]) neg Bilirubin [facility] ([facility]) 1.010 [place] NEXTGEN ([facility]) neg Ketones [facility] ([facility]) Urinalysis yellow Color [facility] dip[facility] panel ([facility] Automated test Medical strip Center) neg Nitrite [facility]EXT[facility] ([facility]) 6.0 pH [facility] ([facility]) neg Leukocytes [facility] ([facility]) neg Protein [facility] ([facility]) neg Glucose [facility] ([facility]) 0.2 Urobilinogen [facility]) Procedure Social History Code Duration Value Status Description Data Source(s ) Caffeine Use 06/25/2020 completed NEXTGEN (Jose nt Details 12:00:00 AM EDT [facility]) Smoking 06/25/2020 Unknown if completed Unknown if ever NEXTGEN ( [facility] 12:00:00 AM EDT ever smoked [facility]) Caffeine Use 03/19/2020 completed NEXTGEN (Jose nt Details 12:00:00 AM EDT [facility]) Alcohol Use 12/17/2019 completed beer 6 pk of beer NEXTGE N ([facility] Details 12:00:00 AM EDT weekly [facility]) 12/17/2019 Current completed Current NEXTGEN ([facility] 12:00:00 AM EDT non-smoker non-smoker [facility]) Smoking Unknown if completed Unknown if ever [facility] ever smoked smoked [facility] Vital Signs ID Date Data Source [id number] Name Value Range Interpretation Code Description Data Source(s) Oxygen saturation 94 % 94 % NEXTGEN ([facility] in Arterial blood [facility] by Pulse oximetry Center) Body mass index 35.96 kg/m2 Overweight 35.96 kg/m2 NEXTGEN ([facility] (BMI) [Ratio] [facility]) Respiratory rate 18 /min 18 /min [facility]) Body temperature 36.17 Christiane 36.17 Christiane [facility] ([facility]) Heart rate 83 /min 83 /min [facility] ([facility]) Diastolic blood 88 mm[Hg] 88 mm[Hg] [facility] ( [facility]) Systolic blood 134 mm[Hg] 134 mm[Hg] NEXTGEN ([facility]) Body weight 102.603 kg 102.603 kg [facility]) Body height 168.91 cm 168.91 cm [facility] ([facility]) Oxygen saturation 98 % 98 % NEXTGEN ([facility] in Arterial blood [facility] by Pulse oximetry Center) Body mass index 35.55 kg/m2 Overweight 35.55 kg/m2 NEXTGEN ([facility] (BMI) [Ratio] [facility]) Respiratory rate 18 /min 18 /min NEXTGEN ([facility]) Body temperature 36.28 Christiane 36.28 Christiane [facility]) Heart rate 68 /min 68 /min [facility]) Diastolic blood 88 mm[Hg] 88 mm[Hg] NEXTGEN ( [facility]) Systolic blood 139 mm[Hg] 139 mm[Hg] [facility]) Body weight 101.423 kg 101.423 kg [facility]) Body height 168.91 cm 168.91 cm [facility] ([facility]) Oxygen saturation 97 % 97 % NEXTGEN ([facility] in Arterial blood [facility] by Pulse oximetry Center) Body mass index 34.66 kg/m2 Overweight 34.66 kg/m2 NEXTGEN ([facility] (BMI) [Ratio] [facility]) Respiratory rate 18 /min 18 /min NEXTGEN ([facility]) Body temperature 36.17 Christiane 36.17 Christiane NEXTGEN ([facility]) Heart rate 64 /min 64 /min NEXTGEN ([facility]) Diastolic blood 85 mm[Hg] 85 mm[Hg] NEXTGEN ( [facility]) Systolic blood 126 mm[Hg] 126 mm[Hg] NEXTGEN ([facility]) Body weight 98.883 kg 98.883 kg [facility]) Body height 168.91 cm 168.91 cm [facility] ([facility]) Oxygen saturation 95 % 95 % NEXTGEN ([facility] in Arterial blood [facility] by Pulse oximetry Center) Body mass index 33.39 kg/m2 Overweight 33.39 kg/m2 NEXTGEN ([facility] (BMI) [Ratio] [facility]) Respiratory rate 18 /min 18 /min NEXTGEN ([facility]) Body temperature 36.67 Christiane 36.67 Christiane [facility]) Heart rate 83 /min 83 /min NEXTGEN ([facility]) Diastolic blood 78 mm[Hg] 78 mm[Hg] NEXTGEN ( [facility]) Systolic blood 128 mm[Hg] 128 mm[Hg] [facility]) Body weight 95.254 kg 95.254 kg [facility] ([facility]) Body height 168.91 cm 168.91 cm [facility] ([facility]) Oxygen saturation 97 % 97 % [facility] ([facility] in Arterial [facility] by Pulse oximetry Center) Body mass index 33.13 kg/m2 Overweight 33.13 kg/m2 NEXTGEN ([facility] (BMI) [Ratio] [facility]) Respiratory rate 18 /min 18 /min [facility] ([facility]) Body temperature 36.28 Christiane 36.28 Christiane NEXTGEN ([facility]) Heart rate 73 /min 73 /min NEXTGEN ([facility]) Diastolic blood 81 mm[Hg] 81 mm[Hg] NEXTGEN ( [facility]) Systolic blood 124 mm[Hg] 124 mm[Hg] NEXTGEN ([facility]) Body weight 94.529 kg 94.529 kg NEXTGEN ([facility]) Body height 168.91 cm 168.91 cm [facility]) Oxygen saturation 95 % 95 % [facility] ([facility] in Arterial blood [facility] by Pulse oximetry Center) Body mass index 32.43 kg/m2 Overweight 32.43 kg/m2 NEXTGEN ([facility] (BMI) [Ratio] [facility]) Respiratory rate 20 /min 20 /min [facility] ([facility]) Body temperature 37.00 Christiane 37.00 Christiane [facility]) Heart rate 73 /min 73 /min [facility] ([facility]) Diastolic blood 87 mm[Hg] 87 mm[Hg] [facility] ( [facility] pressure [facility]) Systolic blood 138 mm[Hg] 138 mm[Hg] [facility] ([facility]) Body weight 92.533 kg 92.533 kg [facility] ([facility]) Body height 168.91 cm 168.91 cm [facility] ([facility]) Patient Treatment Plan of Care Planned Activity Planned Date Details Description Data Source (s) Naproxen 500 MG Oral Tablet 03/19/2020 NEXTGEN ([facility] 12:00:00 AM [facility]) Naproxen 500 MG Oral Tablet 03/19/2020 NEXTGEN ([facility] 12:00:00 AM [facility]) Flonase Allergy Relief 50 12/17/2019 NE XTGEN ([facility] mcg[facility]actuation [facility] Ketoconazole 20 MG/ML 11/08/2019 NEXTGE N ([facility] Topical Cream 12:00:00 AM [facility]) Naproxen 500 MG Oral Tablet 11/08/2019 NEXTGEN ([facility] 12:00:00 AM [facility]) Ketoconazole 20 MG/ML 11/08/2019 NEXTGE N ([facility] Topical Cream 12:00:00 AM [facility]) Naproxen 500 MG Oral Tablet 07/22/2019 NEXTGEN ([facility] 12:00:00 AM [facility]) Sulfamethoxazole 800 MG / 06/28/2019 NE GEN ([facility] Trimethoprim 160 MG Oral 12:00:00 AM [facility] Medical Tablet [Bactrim] [place])
[2020-07-05] MEDS ORDERED: KETOROLAC TROMETHAMINE 30 MG/1 ML VIAL ONE (15:02)
[2020-07-05] MEDS ORDERED: MIDAZOLAM HCL 2 MG/2 ML SINGLE DOSE VIAL ONE (15:03)
--- NOTE | 2020-07-05 15:32 | OP ---
Operative Note - Note: Operative Date: 07/05/20 Pre-Operative Diagnosis: R renal stone Operation: R ESWL Findings: 5 mm mid pole Right renal stone Surgeon: Nico Rosario Anesthesia: Regional Estimated Blood Loss (mls): 0 Operative Report Dictated: Yes
--- NOTE | 2020-07-05 16:29 | OP ---
DATE OF OPERATION: 07/05/2020 PREOPERATIVE DIAGNOSIS: Right renal stone. POSTOPERATIVE DIAGNOSIS: Right renal stone. PROCEDURE: Right extracorporeal shockwave lithotripsy. ATTENDING: Gill Rosario M.D. ANESTHESIA: Fractional. DESCRIPTION OF PROCEDURE: Patient was brought in the operating room, placed in a supine position on the operating room table. Ultrasonography and fluoroscopy were performed. A 5-mm left lower pole stone was identified. At this point, anesthesia and preoperative antibiotics were administered. Shockwave lithotripsy was then performed. 2500 impulses at 17 joules of power were administered to the stone under direct fluoroscopic and sonographic visualization of the stone. Excellent fragmentation was noted No complications were noted. The patient tolerated the procedure very well. DISPOSITION: To recovery room. GILL JOEL M.D. [id number]
[2020-07-05 16:31] VITALS: BP 136/88; PULSE 64; TEMP 97.2
== END 2020-07-05 16:25 | disposition home or self-care (01) ==
LOC: JASU-SURG 04:22
PROVIDERS: ATTEND Urology
PROC: 0TF3XZZ Fragmentation in Right Kidney Pelvis, External Approach (ICD-10-PCS; principal; 2020-07-05 15:09)
DX: N20.0 Calculus of kidney (principal)

== ENCOUNTER → 2020-11-22 | Day surgery (SDC) | payer OTHER ==
[2020-11-18 11:02] VITALS: BMI 29.2
== END | disposition home or self-care (01) ==
LOC: JASU-SURG 04:20
PROVIDERS: ATTEND Urology
DX: Z53.8 Procedure and treatment not carried out for other reasons (principal)

== ENCOUNTER 2021-02-11 06:16 | Emergency (ER) | payer OTHER ==
[2021-02-11 07:26] VITALS: BP 111/80; PULSE 72; TEMP 98.4; BMI 29.2
[2021-02-11] MEDS ORDERED: ACETAMINOPHEN 1000 MG/100 ML VIAL (NON FORMULARY) IVPB ONE (08:17)
[2021-02-11 08:37] LABS: BASO % 0.9 % (0-2.0); HEMATOCRIT 42.5 % (35.4-49); HEMOGLOBIN 14.8 GM/dL (11.7-16.9); LYMPH % 42.2 % (8-40); MCHC 34.7 g/dl (32.0-35.9); MEAN CELL VOLUME 83.6 fl (80-96); MEAN PLT VOLUME 10.2 fl (7.5-11.1); MONO % 6.3 % (3.8-10.2); NEUT % 47.6 % (42.8-82.8); PLATELET COUNT 193 K/MM3 (134-434); RBC 5.09 M/mm3 (4.00-5.60); RDW 14.3 % (11.9-15.9); WHITE BLOOD COUNT 8.3 K/mm3 (4.0-10.0)
[2021-02-11 08:42] LABS: PH,URINE 5.5 (5.0-8.0); URINE APPEARANCE CLEAR; URINE BILIRUBIN NEGATIVE (NEGATIVE); URINE COLOR YELLOW; URINE GLUCOSE (UA) 2+ (NEGATIVE); URINE KETONE NEGATIVE (NEGATIVE); URINE LEUK ESTERASE NEGATIVE (NEGATIVE); URINE NITRITE NEGATIVE (NEGATIVE); URINE PROTEIN NEGATIVE (NEGATIVE); URINE UROBILINOGEN 0.2 mg/dL (0.2-1.0)
[2021-02-11] MEDS ORDERED: ACETAMINOPHEN INJECTION 100 ML IVPB ONE (08:48)
[2021-02-11 09:04] LABS: ALBUMIN 4.3 g/dl (3.4-5.0); CALCIUM 9.5 mg/dL (8.5-10.1)
[2021-02-11 09:05] LABS: BLOOD UREA NITROGEN 16.2 mg/dL (7-18)
[2021-02-11 09:07] LABS: CREATININE 0.8 mg/dL (0.55-1.3)
[2021-02-11 09:09] LABS: BILIRUBIN,TOTAL 0.6 mg/dL (0.2-1); TOT PROT 7.8 g/dl (6.4-8.2)
[2021-02-11] MEDS ORDERED: SODIUM CHLORIDE 1,000 ML IV STA (10:04)
[2021-02-11] MEDS ORDERED: ONDANSETRON 4 MG/2 ML VIAL IVPUSH ONE (10:06)
[2021-02-11] MEDS ORDERED: ONDANSETRON 4 MG/2 ML VIAL ONE (10:17)
== END 2021-02-11 12:31 | disposition home or self-care (01) ==
LOC: JER 06:16
PROC: 3E0333Z Introduction of Anti-inflammatory into Peripheral Vein, Percutaneous Approach (ICD-10-PCS; principal; 2021-02-11)
PROC: 3E033GC Introduction of Other Therapeutic Substance into Peripheral Vein, Percutaneous Approach (ICD-10-PCS; 2021-02-11)
PROC: 3E0337Z Introduction of Electrolytic and Water Balance Substance into Peripheral Vein, Percutaneous Approach (ICD-10-PCS; 2021-02-11)
DX: K85.90 Acute pancreatitis without necrosis or infection, unspecified (principal)
CPT/HCPCS: 36415; 74176-TC; 80053; 81003; 83690; 85025; 87086; 99284-25; J0131

== ENCOUNTER 2021-04-01 15:23 | Emergency (ER) | payer OTHER ==
[2021-04-01 15:36] VITALS: BP 117/84; PULSE 70; TEMP 98; BMI 27.1
== END 2021-04-01 16:00 | disposition left against medical advice (07) ==
LOC: JER 15:23
DX: R73.9 Hyperglycemia, unspecified (principal)
CPT/HCPCS: 82962; 99281-25

== ENCOUNTER 2022-08-28 04:27 | Day surgery (SDC) | payer OTHER ==
[2022-08-23 10:13] VITALS: BMI 28.0
[2022-08-28 14:20] VITALS: BP 142/93; PULSE 88; RESP 18; TEMP 97.3
== END 2022-08-28 14:43 | disposition home or self-care (01) ==
LOC: JASU-SURG 04:27
PROVIDERS: ATTEND Urology
DX: Z53.8 Procedure and treatment not carried out for other reasons (principal)
CPT/HCPCS: 82962